=== PATIENT | male | born 1955 | race Caucasian/White ===

== ENCOUNTER → 2023-12-28 06:22 | Day surgery (SDC) | payer OTHER, SELFPAY | LOC: GI 06:22 | PROVIDERS: ATTENDING PHYSICIAN Internal Medicine Gastroenterology; FAMILY PHYSICIAN Nurse Practitioner Adult Health | DX: K31.7 Polyp of stomach and duodenum (principal); R13.14 Dysphagia, pharyngoesophageal phase; R12 Heartburn; R68.81 Early satiety; R63.4 Abnormal weight loss | CPT/HCPCS: 43239; 88305 ==

== ENCOUNTER → 2024-12-30 07:36 | Outpatient (REF) | payer OTHER, SELFPAY | LOC: RAD 07:36 | PROVIDERS: ATTENDING PHYSICIAN Internal Medicine Gastroenterology; FAMILY PHYSICIAN Nurse Practitioner Primary Care | DX: R68.81 Early satiety (principal) | CPT/HCPCS: 78264; A9541 ==